=== PATIENT | male | born 2000 | race Hispanic/Latino ===

== ENCOUNTER 2025-01-30 11:35 | Emergency (ER) | payer SELFPAY ==
[~2025-01-30] VITALS: Ht 175.3 cm; Wt 97.6 kg
[2025-01-30] MEDS ORDERED: CETIRIZINE HCL10 MG PO (11:58)
[2025-01-30] MEDS ORDERED: ACYCLOVIR800 MG PO (12:53)
[2025-01-30] MEDS ORDERED: PREDNISONE20 MG PO (12:53)
[2025-01-30] MEDS ORDERED: ARTHRITIS AND42.5 GM TOP (12:55)
[2025-01-30] MEDS ORDERED: HYDROCODON-ACE1 EA10 PO (12:55)
[2025-01-30 13:42] VITALS: BP 155/74
== END 2025-01-30 13:42 | disposition home or self-care (01) ==
LOC: ED 11:35
DX: B02.9 Zoster without complications (principal)
CPT/HCPCS: 99282